=== PATIENT | female | born 1935 | race Caucasian/White ===

== ENCOUNTER 2017-08-12 05:30 | Emergency (ER) | payer OTHER, BC ==
[2017-08-12 05:52] VITALS: PULSE 52; TEMP 98.4; BMI 38.5
--- NOTE | 2017-08-12 06:06 | PDOC ---
History of Present Illness - General Chief Complaint: Blood Pressure Problem Stated Complaint: DIZZINESS,BLOOD PRESSURE PROBLEM Time Seen by Provider: 08/12/17 05:47 - History of Present Illness Initial Comments: 08/12/17 06:15 The patient is an 81 year old female with a history of HTN, ovarian CA and Lymphoma in remission, who presents for evaluation of high blood pressure. The patient reports that she has a labile blood pressure that has been difficult to control on an outpatient basis with her yoga coordinator. Dr. Escalante. She notes that her blood pressures usually run high despite her BP medications. She noted an episode of nausea and non-bilious, non-bloody vomiting 1 day ago with an associated nose bleed prompting her presentation to the ED today for concerns of elevated BP. She also notes some headache that she describes as intermittent sharp pains just under the skin of her scalp. She otherwise denies fevers, chills, vision changes, SOB, chest pain, abdominal pain, numbness , weakness, or changes with urination or bowel movements. Past History - Past Medical History Allergies/Adverse Reactions: Allergies Allergy/AdvReac Type Severity Reaction Status Date / Time No Known Drug Allergies Allergy Unknown Verified 08/12/17 05:45 MACADAMIA NUTS AdvReac Severe Nausea Uncoded 08/12/17 05:45 Home Medications: Ambulatory Orders Olmesartan Medoxomil [Benicar -] 40 mg PO DAILY 03/14/12 Aspirin [ASA -] 81 mg PO HS 03/15/12 Atorvastatin Calcium [Lipitor] 10 mg PO HS 03/15/12 Acetaminophen [Tylenol .Extra-Strength -] 1,000 mg PO DAILY 04/22/16 Cholecalciferol (Vitamin D3) [Vitamin D3] 2,000 unit PO DAILY 04/22/16 Labetalol HCl 300 mg PO 2 TABS BID tablet 09/30/16 Amlodipine Besylate [Norvasc -] 10 mg PO DAILY 08/12/17 Anemia: Yes Asthma: No Cancer: Yes (CHEMOTHERAPY AT PRESENT FOR LYMPHOMA, ovarian ca) Cardiac Disorders: Yes (SOB) CVA: Yes (TIA) COPD: No CHF: No Dementia: No Diabetes: No GI Disorders: No Disorders: No HTN: Yes Hypercholesterolemia: Yes Liver Disease: No Seizures: No Thyroid Disease: No - Surgical History Abdominal Surgery: No Appendectomy: No Cardiac Surgery: No Cholecystectomy: No Lung Surgery: No Neurologic Surgery: No Orthopedic Surgery: No - Suicide/Smoking/Psychosocial Hx Smoking History: Former smoker Have you smoked in the past 12 months: No If you are a former smoker, when did you quit?: 10 years Information on smoking cessation initiated: No Hx Alcohol Use: No Drug/Substance Use Hx: No Substance Use Type: Alcohol Hx Substance Use Treatment: No Review of Systems - Review of Systems Comments:: 08/12/17 06:23 Constitutional: No fevers, chills, fatigue, malaise HEENT: No Rhinorrhea, nasal congestion, visual changes Cardiovascular: No chest pain, syncope, palpitations, lightheadedness Respiratory: No Cough, SOB, Hemoptysis, Gastrointestinal: No Abdominal pain, Constipation, Diarrhea, Melena Genitourinary: No Dysuria, Frequency, Urgency, Hesitancy, Hematuria, Flank pain Musculoskeletal: No Myalgia, arthralgia Skin: No rashes, itching, bruising, pallor Neurologic: No Headache, Dizziness, Numbness, Weakness, or Tingling Psychiatric: No Hallucinations. No SI or HI *Physical Exam - Vital Signs Last Vital Signs Temp Pulse Resp BP Pulse Ox 98.4 F 52 L 18 177/52 95 08/12/17 05:46 08/12/17 05:46 08/12/17 05:46 08/12/17 05:46 08/12/17 05:46 - Physical Exam Comments: 08/12/17 06:27 General Appearance: Nourished. No Apparent Distress HEENT: EOMI, ELIDA. No Pharyngeal Erythema, Tonsillar Exudate, Tonsillar Erythema Neck: No Cervical Lymphadenopathy Respiratory/Chest: Lungs Clear, Normal Breath Sounds. No Crackles, Rales, Rhonchi, Wheezing Cardiovascular: Regular Rhythm, Regular Rate. No Murmur, Gallops, Rubs Gastrointestinal/Abdominal: Normal Bowel Sounds, Soft. No Guarding, Rebound, Tenderness Musculoskeletal: No CVA Tenderness Extremity: Normal Capillary Refill Integumentary: Normal Color, Dry, Warm Neurologic: Fully Oriented, Alert, Normal Mood/Affect, Normal Response, Heart Score/ECG Review #1 ECG reviewed & interpreted by me at: 06:27 (Sinus Eric with 1st degree AV Block ) General ECG Interpretation: Sinus Rhythm, Normal Intervals, No acute ischemic changes Medical Decision Making - Medical Decision Making 08/12/17 06:28 The patient is an 81 year old female with a history of HTN, ovarian CA and Lymphoma in remission, who presents for evaluation of high blood pressure. The patient remains asymptomatic here in the ED and wishes to be discharged home. The patient appears clinically well on exam with a normal physical exam. The patient reports that she took her BP medications prior to presentation to the ED. We are comfortable discharging the patient home with cardiology follow up with Dr. Escalante within the next 1-2 days. EKG obtained was unremarkable. We discussed the plan with the patient as well as return precautions including but not limited to: chest pain, SOB, headache, weakness in the extremities, or vomiting. The patient voiced understanding and is agreeable with the plan and will call Dr. Escalante's office today. *DC/Admit/Observation/Transfer Diagnosis at time of Disposition: High blood pressure Qualifiers: Hypertension type: unspecified Qualified Code(s): I10 - Essential (primary) hypertension - Discharge Dispostion Disposition: HOME Condition at time of disposition: Good Admit: No - Referrals Referrals: Weston Charles MD [Primary Care Provider] - - Patient Instructions Printed Discharge Instructions: DI for High Blood Pressure, How to Monitor Your Blood Pressure at Home Additional Instructions: Please return to the ER if you experience concerning or worsening symptoms including worsening headache, vomiting, chest pain, or difficulty breathing. Your EKG was unremarkable here in the ER. It is extremely important that you call to schedule a follow up appointment with your yoga coordinator Dr. Escalante within the next 1-2 days to discuss your ER visit and further management of your symptoms. - Post Discharge Activity
--- NOTE | 2017-08-12 06:27 | PDOC ---
Attending Attestation - HPI HPI: 08/12/17 06:30 The patient is an 81 year old female with a significant PMH of ovarian CA, lymphoma (both in remission), and HTN who presents to the emergency department for evaluation of high blood pressure and headache. She also notes an episode of nausea and NBNB vomiting about 1 day ago. The patient denies fevers and chills. She denies weakness or numbness. Allergies: NKDA PCP: Dr. Charles Supervisor Inspection: Dr. Escalante <kSy Marcos - Last Filed: 08/12/17 06:31> - Resident Resident Name: Isael Rinaldi - ED Attending Attestation I have performed the following: I have examined & evaluated the patient, The case was reviewed & discussed with the resident, I agree w/resident's findings & plan, Exceptions are as noted - Physicial Exam PE: 08/12/17 06:26 *Physical Exam General Appearance: Yes: Appropriately Dressed. No: Apparent Distress, Intoxicated HEENT: positive: EOMI, ELIDA, Normal ENT Inspection, Normal Voice, TMs Normal, Pharynx Normal. negative: Pale Conjunctivae, Photophobia, Scleral Icterus (R), Scleral Icterus (L) Neck: positive: Trachea midline, Normal Thyroid, Supple. negative: Tender, Rigid, Carotid bruit, Stridor, Lymphadenopathy (R), Lymphadenopathy (L), Thyromegaly Respiratory/Chest: positive: Lungs Clear, Normal Breath Sounds. negative: Chest Tender, Respiratory Distress, Accessory Muscle Use, Labored Respiration, RES, Crackles, Rales, Rhonchi, Stridor, Wheezing, Dullness Cardiovascular: positive: Regular Rhythm, Regular Rate, S1, S2. negative: Edema , JVD, Murmur, Bradycardia, Tachycardia Vascular Pulses: Dorsalis-Pedis (R): 2+, Doralis-Pedis (L): 2+ Gastrointestinal/Abdominal: positive: Normal Bowel Sounds, Flat, Soft. negative : Tender, Organomegaly, Pulsatile Mass, Increased Bowel Sounds, Decreased BS, Distended, Guarding, Rebound, Hernia, Hepatomegaly, Spleenomegaly Lymphatic: negative: Adenopathy, Tenderness Musculoskeletal: positive: Normal Inspection. negative: CVA Tenderness, Decreased Range of Motion Extremity: positive: Normal Capillary Refill, Normal Inspection, Normal Range of Motion, Pelvis Stable. negative: Tender, Pedal Edema, Swelling, Erythema Integumentary: positive: Normal Color, Dry, Warm. negative: Cyanotic, Erythema , Jaundice, Rash Neurologic: positive: health insurance assessor II-XII NML intact, Fully Oriented, Alert, Normal Mood/ Affect, Motor Strength 5/5. negative: EOM Palsy, Facial Droop, Sensory Deficit - Medical Decision Making 08/12/17 19:39 pt treated and released <Sagar Wall - Last Filed: 08/12/17 19:39> Heart Score/ECG Review #1 08/12/17 06:31 Vent rate 48 bpm Sinus bradycardia with 1st degree AV block Possible anterior infarct, age undetermined. Anormal ECG. <Sky Marcos - Last Filed: 08/12/17 06:31>
[2017-08-12 06:33] VITALS: BP 164/41
--- NOTE | 2017-08-12 12:40 | EKG ---
Test Reason : Blood Pressure : / mmHG Vent. Rate : 048 BPM Atrial Rate : 048 BPM P-R Int : 212 ms QRS Dur : 098 ms QT Int : 502 ms P-R-T Axes : -13 -08 019 degrees QTc Int : 448 ms SINUS BRADYCARDIA WITH 1ST DEGREE A-V BLOCK POSSIBLE ANTERIOR INFARCT , AGE UNDETERMINED ABNORMAL ECG WHEN COMPARED WITH ECG OF 29-APR-2010 09:06, DC INTERVAL HAS INCREASED VENT. RATE HAS DECREASED BY 36 BPM BORDERLINE CRITERIA FOR ANTERIOR INFARCT ARE NOW PRESENT Confirmed by DRAGAN COREY MD ([id number]) on 08/12/2017 12:40:00 PM Referred By: Confirmed By:DRAGNA COREY MD
== END 2017-08-12 06:43 | disposition home or self-care (01) ==
LOC: JER 05:30
DX: I10 Essential (primary) hypertension (principal); E78.00 Pure hypercholesterolemia, unspecified; Z86.73 Personal history of transient ischemic attack (TIA), and cerebral infarction without residual deficits; Z85.43 Personal history of malignant neoplasm of ovary; Z85.72 Personal history of non-Hodgkin lymphomas
CPT/HCPCS: 93005; 93010; 99282-25